=== PATIENT | male | born 1985 ===

== ENCOUNTER → 2017-11-23 | Emergency (ER) | payer OTHER ==
[~2017-11-23] VITALS: Ht 172.7 cm; Wt 88.5 kg
[~2017-11-23] MED LIST: ALTACE10 MG; LIPITOR40 MG; MEDROLPACK PO; NORVASC5 MG PO; ZYRTEC10 MG PO
== END | disposition home or self-care (01) ==
LOC: ER 12:32
DX: R60.0 Localized edema (principal); T78.3XXA Angioneurotic edema, initial encounter; T50.991A Poisoning by other drugs, medicaments and biological substances, accidental (unintentional), initial encounter; Y92.89 Other specified places as the place of occurrence of the external cause